=== PATIENT | female | born 2000 | race Caucasian/White ===

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

== ENCOUNTER → 2021-05-12 13:20 | Outpatient (BNVA) | payer BC, MEDICAID, SELFPAY | PROVIDERS: PCP Pediatrics Adolescent Medicine; Visit Provider Obstetrics & Gynecology | DX: Z32.01 Encounter for pregnancy test, result positive (principal) | CPT/HCPCS: 84702 ==

== ENCOUNTER → 2021-05-14 09:20 | Outpatient (BNVA) | payer BC, MEDICAID, SELFPAY | PROVIDERS: PCP Pediatrics Adolescent Medicine; Visit Provider Obstetrics & Gynecology | DX: Z32.01 Encounter for pregnancy test, result positive (principal) | CPT/HCPCS: 84702 ==

== ENCOUNTER → 2021-06-13 09:51 | Outpatient (BNVA) | payer BC, MEDICAID, SELFPAY | PROVIDERS: PCP Pediatrics Adolescent Medicine; Visit Provider Obstetrics & Gynecology | DX: Z34.90 Encounter for supervision of normal pregnancy, unspecified, unspecified trimester (principal) | CPT/HCPCS: 80307; 81000; 84443; 85025; 86592; 86762; 86803; 86850; 86900; 87086; 87340; 87806 ==

== ENCOUNTER → 2021-06-23 09:54 | Outpatient (BNVA) | payer BC, MEDICAID, SELFPAY | PROVIDERS: Visit Provider Obstetrics & Gynecology | DX: Z34.90 Encounter for supervision of normal pregnancy, unspecified, unspecified trimester (principal) | CPT/HCPCS: 81000; 87491; 87591; 87661 ==

== ENCOUNTER → 2021-07-24 14:35 | Outpatient (BNVA) | payer BC, MEDICAID, SELFPAY | PROVIDERS: Visit Provider Obstetrics & Gynecology | DX: Z34.80 Encounter for supervision of other normal pregnancy, unspecified trimester (principal) | CPT/HCPCS: 81000 ==

== ENCOUNTER → 2021-08-22 12:59 | Outpatient (BNVA) | payer MEDICAID, SELFPAY | PROVIDERS: Visit Provider Obstetrics & Gynecology | DX: Z34.80 Encounter for supervision of other normal pregnancy, unspecified trimester (principal) | CPT/HCPCS: 81000 ==

== ENCOUNTER → 2021-09-18 13:00 | Outpatient (BNVA) | payer BC, SELFPAY | PROVIDERS: Visit Provider Obstetrics & Gynecology | DX: Z34.90 Encounter for supervision of normal pregnancy, unspecified, unspecified trimester (principal) | CPT/HCPCS: 81000 ==

== ENCOUNTER → 2021-10-17 10:48 | Outpatient (BNVA) | payer BC, SELFPAY | PROVIDERS: Visit Provider Obstetrics & Gynecology | DX: Z34.90 Encounter for supervision of normal pregnancy, unspecified, unspecified trimester (principal) | CPT/HCPCS: 81000; 82950; 85025 ==

== ENCOUNTER → 2021-10-30 14:33 | Outpatient (BNVA) | payer MEDICAID, SELFPAY | PROVIDERS: PCP Family Medicine; Visit Provider Obstetrics & Gynecology | DX: Z34.80 Encounter for supervision of other normal pregnancy, unspecified trimester (principal) | CPT/HCPCS: 81000 ==

== ENCOUNTER → 2021-11-13 10:16 | Outpatient (BNVA) | payer BC, MEDICAID, SELFPAY | PROVIDERS: PCP Family Medicine; Visit Provider Obstetrics & Gynecology | DX: Z34.80 Encounter for supervision of other normal pregnancy, unspecified trimester (principal) | CPT/HCPCS: 81000 ==

== ENCOUNTER → 2021-11-27 11:26 | Outpatient (BNVA) | payer BC, MEDICAID, SELFPAY | PROVIDERS: PCP Family Medicine; Visit Provider Obstetrics & Gynecology | DX: Z34.90 Encounter for supervision of normal pregnancy, unspecified, unspecified trimester (principal) | CPT/HCPCS: 81000; 85025 ==

== ENCOUNTER → 2021-12-03 11:25 | Outpatient (BNVA) | payer BC, MEDICAID, SELFPAY | PROVIDERS: PCP Family Medicine; Visit Provider Obstetrics & Gynecology | DX: Z34.90 Encounter for supervision of normal pregnancy, unspecified, unspecified trimester (principal) | CPT/HCPCS: 76816 ==

== ENCOUNTER → 2021-12-11 09:32 | Outpatient (BNVA) | payer BC, MEDICAID, SELFPAY | PROVIDERS: PCP Family Medicine; Visit Provider Obstetrics & Gynecology | DX: Z34.90 Encounter for supervision of normal pregnancy, unspecified, unspecified trimester (principal) | CPT/HCPCS: 81000; 87081 ==

== ENCOUNTER → 2021-12-18 11:23 | Outpatient (BNVA) | payer BC, MEDICAID, SELFPAY | PROVIDERS: PCP Family Medicine; Visit Provider Obstetrics & Gynecology | DX: Z34.90 Encounter for supervision of normal pregnancy, unspecified, unspecified trimester (principal) | CPT/HCPCS: 81000 ==

== ENCOUNTER → 2021-12-25 13:20 | Outpatient (BNVA) | payer BC, MEDICAID, SELFPAY | PROVIDERS: PCP Family Medicine; Visit Provider Obstetrics & Gynecology | DX: Z34.90 Encounter for supervision of normal pregnancy, unspecified, unspecified trimester (principal) | CPT/HCPCS: 81000 ==

== ENCOUNTER → 2022-01-01 11:34 | Outpatient (BNVA) | payer BC, MEDICAID, SELFPAY | PROVIDERS: PCP Family Medicine; Visit Provider Obstetrics & Gynecology | DX: Z34.90 Encounter for supervision of normal pregnancy, unspecified, unspecified trimester (principal) | CPT/HCPCS: 81000 ==

== ENCOUNTER → 2022-01-08 10:33 | Outpatient (BNVA) | payer BC, MEDICAID, SELFPAY | PROVIDERS: PCP Family Medicine; Visit Provider Obstetrics & Gynecology | DX: Z34.90 Encounter for supervision of normal pregnancy, unspecified, unspecified trimester (principal) | CPT/HCPCS: 81000 ==

== ENCOUNTER 2022-01-12 10:38 | Inpatient (IN) | payer BC, MEDICAID, SELFPAY ==
[2022-01-12] VITALS (19 sets, daily range): BP systolic 105–143; BP diastolic 53–83; PULSE 52–131; RESP 15–17; TEMP 35.9–36.6; BMI 30.6
[2022-01-12] MEDS: miSOPROStol 100 mcg tablet 50 MCG PO (13:20)
--- NOTE | 2022-01-12 13:33 | P.HPUD_ITS ---
Labor & Delivery H&P Update Date of Procedure: January 12, 2022 Date H&P Performed: 01/08/22 Changes to previous documentation: Sherrie is a 21-year-old 0001 with an IUP 40W5D dated by LMP and 7-week ultrasound. History of 1 term and her daughter weighed 8 lbs 3oz.. This gestation has been complicated by anxiety disorder and nausea and vomiting up until today when she was diagnosed with oligohydramnios (PATTIE 3.93 cm). Ultrasound today revealed cephalic presentation. Dr. Goodrich sent Sherrie over for indicated induction of labor. Patient is accompanied by her , Scott. The couple has 1 daughter at home, Marilu, who will be 2 years old tomorrow. The couple is expecting another daughter, Víctor Hazel. ROS: Denies loss of fluid, denies vaginal bleeding, denies headache, denies spots in vision, denies right upper quadrant pain, denies cough, denies sore throat, denies difficulty breathing, and appreciates movement. PROCEDURE: 01/12/2022 at 1:00 PM * Ultrasound revealed cephalic?position today * Place patient in the dorsolithotomy position * Inserted sterile speculum * Visualized the external os of the cervix which appeared closed * Grasped the Cook's balloon with ring forceps and then inserted into the external os * Past the Cook's into the uterus to the level of the vaginal balloon * Filled the?uterine balloon with 80 mL?of normal saline then removed the speculum * Filled the?vaginal balloon with 80 mL?of normal saline and then taped the catheter to the patient's thigh * Administered 50 mcg of misoprostol orally with intent to provide an additional 2 doses every 3-4 hours * Patient tolerated the procedure well albeit mild cramping ensued * EBL: None * Complications: None NST/LOT ASSOCIATE: Baseline: 135 Variability:?Moderate Accelerations:?Present Decelerations:?Absent [place]:?Irregular with significant irritability Category: I Reactive/Passed Admission Diagnosis: Admission Diagnosis: * Term @ 40W5D * Oligohydramnios Preop diagnosis: labor Primary indication for procedure: Oligohydramnios with an PATTIE of 3.93 cm Planned procedure: Cervical ripening followed by induction of labor Related Problem List Diagnoses (1) Oligohydramnios: * Status post efforts for cervical ripening. Cook's catheter in place without complications and now is status post 50 mcg of oral misoprostol to be repeated every 3-4 hours. * Is currently excepting of IV pain control but would like to avoid epidural. Last labor she did have an epidural without complications. * Anticipate ParaGard IUD for contraception in the future * Anticipate exclusively breast-feeding. (2) Anxiety: (3) Postmaturity , 40-42 weeks gestation:
--- NOTE | 2022-01-12 13:33 | PM.OPHPUD ---
Labor & Delivery H&P Update Date of Procedure: January 12, 2022 Date H&P Performed: 01/08/22 Changes to previous documentation: Sherrie is a 21-year-old 0001 with an IUP 40W5D dated by LMP and 7-week ultrasound. History of 1 term and her daughter weighed 8 lbs 3oz.. This gestation has been complicated by anxiety disorder and nausea and vomiting up until today when she was diagnosed with oligohydramnios (PATTIE 3.93 cm). Ultrasound today revealed cephalic presentation. Dr. Goodrich sent Sherrie over for indicated induction of labor. Patient is accompanied by her , Scott. The couple has 1 daughter at home, Marilu, who will be 2 years old tomorrow. The couple is expecting another daughter, Víctor Hazel. ROS: Denies loss of fluid, denies vaginal bleeding, denies headache, denies spots in vision, denies right upper quadrant pain, denies cough, denies sore throat, denies difficulty breathing, and appreciates movement. PROCEDURE: 01/12/2022 at 1:00 PM Ultrasound revealed cephalic?position today Place patient in the dorsolithotomy position Inserted sterile speculum Visualized the external os of the cervix which appeared closed Grasped the Cook's balloon with ring forceps and then inserted into the external os Past the Cook's into the uterus to the level of the vaginal balloon Filled the?uterine balloon with 80 mL?of normal saline then removed the speculum Filled the?vaginal balloon with 80 mL?of normal saline and then taped the catheter to the patient's thigh Administered 50 mcg of misoprostol orally with intent to provide an additional 2 doses every 3-4 hours Patient tolerated the procedure well albeit mild cramping ensued EBL: None Complications: None NST/TILE MECHANIC: Baseline: 135 Variability:?Moderate Accelerations:?Present Decelerations:?Absent [place]:?Irregular with significant irritability Category: I Reactive/Passed Admission Diagnosis: Admission Diagnosis: Term @ 40W5D Oligohydramnios Preop diagnosis: labor Primary indication for procedure: Oligohydramnios with an PATTIE of 3.93 cm Planned procedure: Cervical ripening followed by induction of labor Related Problem List Diagnoses (1) Oligohydramnios: Status post efforts for cervical ripening. Cook's catheter in place without complications and now is status post 50 mcg of oral misoprostol to be repeated every 3-4 hours. Is currently excepting of IV pain control but would like to avoid epidural. Last labor she did have an epidural without complications. Anticipate ParaGard IUD for contraception in the future Anticipate exclusively breast-feeding. (2) Anxiety: (3) Postmaturity , 40-42 weeks gestation:
[2022-01-12 14:10] LABS: Basophils % 0.1 %; Eosinophils # 0.1 10^3/uL (0.0-0.8); Eosinophils % 0.5 %; Hematocrit 39.2 % (37.0-47.0); Hemoglobin 12.1 g/dL (11.5-15.3); Lymphocytes # 2.2 10^3/uL (1.5-6.5); Mean Corpuscular HGB Conc 30.9 g/dL (30.0-36.0); Mean Corpuscular Hemoglobin 24.3 pg (28.0-34.0); Mean Corpuscular Volume 78.7 fl (81-99); Mean Platelet Volume 13.2 fL (7.4-10.4); Monocytes # 0.7 10^3/uL (0.2-0.9); Monocytes % 7.1 %; Neutrophils % 70.9 %; Nucleated Red Blood Cells % 0 %; Platelet Count 182 10^3/cmm (130-400); Red Blood Count 4.98 10^6/uL (4.1-5.3); Red Cell Distribution Width 14.6 % (12.1-15.1); White Blood Count 10.3 10^3/uL (4.5-13.0)
[2022-01-12] MEDS: oxytocin 30 UNIT/500 ML BAG IV (16:01)
[2022-01-12] MEDS: dextrose 5%-lactated ringers 1,000 ML 125 ML IV (20:06)
[2022-01-13] VITALS (68 sets, daily range): BP systolic 91–149; BP diastolic 49–97; PULSE 51–96; RESP 14–18; TEMP 36.4–37; O2SAT 87–100
[2022-01-13] MEDS: dextrose 5%-lactated ringers 1,000 ML 125 ML IV ×2 (04:57→12:57)
[2022-01-13] MEDS: fentaNYL 50 mcg/mL INJ 2mL 100 MCG IVP ×3 (06:32→10:12)
--- NOTE | 2022-01-13 10:40 | P.PN_ITS ---
QUALITY IMPROVEMENT COORDINATOR Subjective Subjective: Interval history: Sherrie is a 21-year-old 0001 with an IUP 40W6D dated by LMP and 7-week ultrasound.? History of 1 term and her daughter weighed 8 lbs 3oz. EFW for this infant ~ 7 lbs.? This gestation has been complicated by anxiety disorder and nausea and vomiting up until 01/12/2022 when she was diagnosed with oligohydramnios (PATTIE 3.93 cm).? Ultrasound on 01/12/2022 revealed cephalic presentation.? Dr. Goodrich sent Sherrie over for indicated induction of labor. Patient is accompanied by her?, Scott.? The couple has 1 daughter at home, Marilu, who will be 2 years old tomorrow.? The couple is expecting another daughter,?Víctor Hazel. Since admit has had Cook's catheter/ballloons and oral Misoprostol for cervical ripening. The balloons fell out in less than 12 hours. At that point Pitocin was initiated and is currently running at 19 milliunits/min. During SVE ruptured forebag without incident. She has excepted IV fentanyl for pain management thus far and continues to decline epidural. ROS:?Endorses loss of fluid since ~ 0150 on 01/13/2022, denies vaginal bleeding, denies headache, denies spots in vision, denies right upper quadrant pain, denies cough, denies sore throat, denies difficulty breathing, and appreciates movement. Endorses significant pain with uterine contractions. Labor: Pain Control: narcotic analgesia Dilation (cm): 5 (5-6 cm) Effacement (%): 80 Station: 0 (Posterior) Amniotic Membrane Status: Leaking Monitor Mode: External Contraction Frequency: 3 (1 - 3 min) Contraction Pattern: Regular Contraction Intensity: Strong/Firm Status: Category I Vitals/I&O/Wt Last Vital Signs Temp 98.3 F 01/13/22 07:00 Pulse 55 L 01/13/22 10:42 Resp 18 01/13/22 10:12 BP 140/88 01/13/22 10:42 01/12/22 01/13/22 01/13/22 22:59 06:59 14:59 Intake Total 38.050 / 38.050 1113.6 / 1151.650 Balance 38.050 / 38.050 1113.6 / 1151.650 Weight last 48 hrs Weight 184 lb Physical Exam Const: GENERAL APPEARANCE: cooperative, well kempt, well developed and in distress (intermittent moderate distress during uterine contractions) Resp: COMMON NORMALS: normal respiratory effort and No use of accessory muscles Cardio: COMMON NORMALS: regular rate and regular rhythm RATE: regular rate RHYTHM: regular rhythm : SPECULUM EXAM - VAGINA: No vaginal bleeding SPECULUM EXAM - CERVIX: Yes Cervical os open (per above) OB/EXTERNAL & SPECULUM: external exam normal and Cervical os open (per above); no bleeding and vaginal bleeding Psych: COMMON NORMALS: mental status grossly normal, Normal thought process present, cooperative, normal affect, speech normal and activity/motor behavior normal APPEARANCE: Yes well kempt SPEECH: Yes normal speech THOUGHT PROCESS: Normal thought process present Skin: COMMON NORMALS: no rashes or lesions noted and turgor normal GENERAL SKIN EXAM: no rashes or lesions noted and turgor normal Data : 01/12/22 12:09 A&P Assessment and plan (1) Postmaturity , 40-42 weeks gestation: Continue pitocin labor augmentation Status: Acute (2) Anxiety: Status: Acute (3) Alteration in comfort associated with uterine contractions: * Pain management upon request * Category I FHT tracing * Anticipate Status: Acute Attestations Medical Necessity Statement*: Oligohydramnios, IOL, delivery, care Coding Level of Care Code Acute Utilization Review Coordinator for Chg Fwd Diagnoses Postmaturity , 40-42 weeks gestation O48.0 Anxiety F41.9 Alteration in comfort associated with uterine contractions N85.8
[2022-01-13] MEDS: lactated ringers 1,000 ML 999 ML IV (11:28)
--- NOTE | 2022-01-13 11:28 | ANES.PREANE2 ---
Pre-Anesthetic Assessment Height/Weight: Height 1.65 m Weight 83.461 kg Temp Pulse Resp BP 98.3 F 55 L 18 140/88 01/13/22 07:00 01/13/22 10:42 01/13/22 10:12 01/13/22 10:42 Preop Diagnosis: labor epidural Familial anesthetic complications: None Was Beta Tim taken within 24 hours: N/A Was Clonidine taken within 24 hours: N/A Social No alcohol and No tobacco Exam alert, oriented x 3, clear to auscultation bilaterally and regular rate & rhythm Airway Submandibular: within normal limits Cervical ROM: within normal limits Mallampati: Class III Dentition: full History/ROS No significant history except as noted and No significant complaints Pulmonary None reported CV/HEM None reported None reported Hepatic None reported GI None reported Metabolic None reported Musc/skel None reported Neuropsych None reported Anesthetic Plan ASA status: 2 Anesthesia: Regional (specify below) Other: epidural Risk of > 500 ml blood loss (7ml/kg in children): No Medications/Allergies Home Medications Medication Instructions Recorded Confirmed Last Taken Type PNV 153-FA 400 mcg-om3 35 mg-dha tab PO 05/22/21 01/08/22 01/12/22 07:50 History 25 mg-epa 5 mg-fish oil chew tablet ( Gummies) Allergies Allergy/AdvReac Type Severity Reaction Status Date / Time No Known Allergies Allergy Verified 01/12/22 13:56 Current Medications Generic Name Dose Route Start Last Admin Trade Name Freq PRN Reason Stop Dose Admin Fentanyl 100 mcg 01/13/22 06:28 01/13/22 10:12 Fentanyl 50 Mcg/Ml Inj 2ml IVP 100 mcg Q1H PRN Administration SEVERE PAIN Dextrose/Lactated Ringer's 1,000 mls @ 125 mls/hr 01/12/22 12:45 01/13/22 04:57 Dextrose 5%-Lactated Ringers IV 125 mls/hr .Q8H KENYETTA Administration Oxytocin 30 unit in 500 mls @ 1 mls/hr 01/12/22 16:00 01/13/22 05:00 Pitocin IV 19 milliunit/min .Q24H KENYETTA 19 mls/hr Titration Protocol 1 MILLIUNIT/MIN PFSH Anesthesia Medical History Patient denies medical problems denies htn,dm,thyroid,lung,dvt/pe PCP: Dr. Javon souza Surgical History History of wisdom tooth extraction 02/2021 Family History Denies family history of Colon cancer Ovarian cancer Diabetes Hyperlipidemia Breast cancer Cancer Hypertension Uterine cancer Thyroid disease Stroke Social History Smoking and tobacco status: never smoked Female Reproductive History : 2 Data Anesthesia : 01/12/22 12:09 Short CBC 01/12/22 Range/Units 12:09 WBC 10.3 (4.5-13.0) 10^3/uL Hgb 12.1 (11.5-15.3) g/dL Hct 39.2 (37.0-47.0) % MCV 78.7 L (81-99) fl Plt Count 182 (130-400) 10^3/cmm Neut % (Auto) 70.9 % Neut # (Auto) 7.30 (1.8-8.0) 10^3/uL Cardiac Studies: No Data to Display
--- NOTE | 2022-01-13 11:55 | ANES.PROC ---
Anesthesia Procedures Procedure/Date: 01/13/22 epidural Epidural: Time Out Performed: Yes Consents Signed: Procedure Consent Consent: requested by attending/covering physician, from patient, risks and benefits reviewed and patient agrees to proceed Lumbar Level: L3-L4 Epidural position: sitting Epidural procedure: sterile prep of area, 1% lidocaine to numb the area, neg for paresthesia, test dose given (3mL/2mL), 1.5% xylocaine 1:200k epi, 0.2% Ropivacaine bolus ml, placed PCEA, no systemic response, sterile dressing applied, L.U.D. no apparent complications and 0.2% Ropiavacaine @ mls/hr (11 mL/hr)
--- NOTE | 2022-01-13 13:35 | P.PN_ITS ---
SANDAL PARTS ASSEMBLER Subjective Subjective: Interval history: Subjective:?? Interval history: Sherrie is a 21-yea r-old 0001 w ith an IUP 40W6D d ated by LMP and 7- week ultrasound.? History of 1 term and her daugh ter weighed 8 lbs 3oz. EFW for this ~ 7 lbs.? T his gestation has been complicated b y anxiety disorder and nausea and vo miting up until when she w as diagnosed with oligohydramnios (A FI 3.93 cm).? Ultr asound on 2 revealed cephali c presentation.? Kalin Goodrich sent A brock over for ind icated induction o f labor. Patient is accompanied by her?, Mary payne.? The couple figueroa s 1 daughter at [facility], Marilu, who will be 2 years old to toy.? The coupl e is expecting ano ther daughter,?Xad ra September. Since adm it has had Cook's catheter/ballloons and oral Misopros jaquan for cervical r ipening.? The ball oons fell out in l ess than 12 hours. ? At that point Pi tocin was initiate d and is currently running at 20 mil liunits/min. Elva bhatt SVE ruptured for ebag without incid ent. She has excep madisyn IV fentanyl fo r pain management followed by roger galvez without inciden t. Labor: Dilation (cm): 9 Effacement (%): 100 Station: 0 Amniotic Membrane Status: Leaking Monitor Mode: External Contraction Frequency: 3 (1 - 3 min) Contraction Pattern: Regular Contraction Intensity: Strong/ Firm Status: Category II (secondary to one recent late deceleration (130s, moderate variability, +accels) ) Vitals/I&O/Wt Last Vital Signs Temp 97.8 F 01/13/22 12:00 Pulse 65 01/13/22 13:36 Resp 18 01/13/22 10:12 BP 108/56 01/13/22 13:36 Pulse Ox 98 01/13/22 12:30 01/12/22 01/13/22 01/13/22 22:59 06:59 14:59 Intake Total 38.050 / 38.050 1113.6 / 6083.296 6309.683 / 1151.683 Balance 38.050 / 38.050 1113.6 / 3845.402 1384.683 / 1151.683 Weight last 48 hrs Weight 184 lb Physical Exam Narrative: ROS:?Endorses loss of fluid since ~ 0150 on 01/13/2022, denies vaginal bl eeding, denies hea dache, denies spot s in vision, denie s right upper quad rant pain, denies cough, denies sore throat, denies di fficulty breathing , and appreciates movement. En dorses good pain a nd pressure contro l during uterine c ontractions since epidural.? Urinary Catheter Management: Jean: Cath Placed During This Visit: yes Urinary Catheter Date of Insertion: 01/13/22 Urinary Catheter Time of Insertion: 12:15 Data : 01/12/22 12:09 A&P Assessment and plan (1) Alteration in comfort associated with uterine contractions: Status: Acute (2) Postmaturity , 40-42 weeks gestation: Status: Acute (3) Oligohydramnios: * Brief Category II FHT tracing with resumption of Category I FHT tracing * Continue to titrate Epidural * Continue to titrate epidural * Anticipate as progress is adequate Status: Acute (4) Anxiety: Status: Acute Attestations Medical Necessity Statement*: Minutes labor, delivery, and immediate care Coding Level of Care Code Acute Group Sales Coordinator for Chg Fwd Diagnoses Alteration in comfort associated with uterine contractions N85.8 Postmaturity , 40-42 weeks gestation O48.0 Oligohydramnios O41.00X0 Anxiety F41.9
--- NOTE | 2022-01-13 15:39 | P.PCNOB_ITS ---
Delivery Note: Date of delivery: January 13, 2022 Pre-delivery diagnoses: IUP 40W6D Oligohydramnios Post-delivery diagnoses: Status post Normal Spontaneous Vaginal Delivery () without complications Procedure: Normal Spontaneous Vaginal Delivery () Op report anesthesia: Epidural Delivering Physician: Eva Hernandez MD, FACOG Estimated blood loss (mL): 150 Findings: Sherrie appears to have normal female anatomy with intact perineum and no vaginal lacerations Viable female infant, Víctor Hazel with normal female anatomy * Víctor Hazel anticipated to breast-feed exclusively [id number] * Weight: 3190 grams ( 7 lbs and 1 oz) * APGARS: 8 at one minute and 9 at five minutes Pre-Delivery Course: Sherrie is a 21-year-old 0001 with an IUP 40W6D Dated by LMP and 7-week ultrasound.?History of 1 term and her daughter weighed 8 lbs 3oz. EFW for this infant ~ 7 lbs.? This gestation has been complicated by anxiety disorder and nausea and vomiting up until 01/12/2022 when she was diagnosed with oligohydramnios (PATTIE 3.93 cm).? Ultrasound on 01/12/2022 r evealed cephalic presentation.? Dr. Goodrich sent Sherrie over for indicated induction of labor. Since admit has had Cook's catheter/ballloons and oral Misoprostol for cervical ripening.? The balloons fell out in less than 12 hours. At that point Pitocin was initiated. During SVE ruptured forebag without incident. She had IV fentanyl for pain management followed by epidural without incident. Patient is accompanied by her?, Keisha.? The couple has 1 daughter who is present, Marilu, who is 2 years old today.? Sherrie gave to yet another daughter today. She shares her day with her sister and her name is Víctor Hazel. Delivery: Upon Shrerie experiencing complete dilation, +3 station, and feeling of intense pressure she was placed in modified [place] position. She was instructed on pushing and she pushed very effectively, once and immediately brought the 's head to the perineum. The perineum appeared adequate. The patient pushed again and the head crowned in the OA position. The anterior shoulder was delivered with a downward motion, the posterior shoulder delivered with an upward motion, and the remainder of the infant's body delivered without any difficulty. Infant cried spontaneously and was placed on the mother's abdomen and resuscitated by the nurse. Delayed cord clamping was performed. Cord blood was obtained. Pitocin was administered and the placenta delivered spontaneously and was found to be intact and complete with a centrally inserted three-vessel cord. Xadra May anticipated to breast-feed exclusively [id number] 71 Weight: 3190 grams ( 7 lbs and 1 oz) APGARS: 8 at one minute and 9 at five minutes Post-Delivery Status: * There were NO lacerations * Doing well and coping well. Xadra is to the breast and family is all around. History History History 2 Term 1 0 Miscarriages/Ectopic 0 Living Children 1 A&P Assessment and plan (1) Care and examination immediately after delivery: Routine care. Status: Acute (2) Normal vaginal delivery of second : Status: Acute Coding Level of Care Code Acute Casing Crew Pusher for Chg Fwd Diagnoses Care and examination immediately after delivery Z39.0 Normal vaginal delivery of second O80
[2022-01-13] MEDS: ibuprofen 800 mg tablet PO (20:07)
[2022-01-13] MEDS: docusate sodium 100 mg Capsule PO (20:08)
[2022-01-14 01:00] VITALS: BP 127/63; PULSE 85; RESP 16; TEMP 36.8
[2022-01-14 04:45] VITALS: BP 125/68; PULSE 57; RESP 16; TEMP 36.8
[2022-01-14 05:20] LABS: Hematocrit 33.4 % (37.0-47.0); Hemoglobin 10.2 g/dL (11.5-15.3); Mean Corpuscular HGB Conc 30.5 g/dL (30.0-36.0); Mean Corpuscular Hemoglobin 23.9 pg (28.0-34.0); Mean Corpuscular Volume 78.4 fl (81-99); Mean Platelet Volume 12.2 fL (7.4-10.4); Platelet Count 161 10^3/cmm (130-400); Red Blood Count 4.26 10^6/uL (4.1-5.3); Red Cell Distribution Width 14.6 % (12.1-15.1); White Blood Count 12.3 10^3/uL (4.5-13.0)
--- NOTE | 2022-01-14 08:53 | PM.DCS ---
Discharge Providers Date of Admission: 01/12/22 10:38 Date of Discharge: January 14, 2022 Attending Provider at Admission: Eva Hernandez MD Attending Provider at Discharge: Eva Hernandez MD Primary Care Provider: Belle Constantino MD Diagnoses at Discharge Discharge Diagnosis (1) Care and examination immediately after delivery: Status: Acute (2) Normal vaginal delivery of second : Status: Acute Reason for Visit Reason for Visit: IOL Hospital Course Hospital Course The patient was admitted for induction of labor for oligohydramnios. She had spontaneous delivery of a term female . She did well and was ready for discharge on day #1 Physical Exam Narrative: doing well this morning. No concerns Const: COMMON NORMALS: no acute distress, average body habitus, patient oriented x3, no limitations, healthy appearing, alert and well nourished GENERAL APPEARANCE: cooperative, comfortable, well kempt and well developed ORIENTATION/CONSCIOUSNESS: Yes awake, Yes oriented to person, Yes oriented to place and Yes oriented to time Resp: COMMON NORMALS: normal respiratory effort EFFORT & INSPECTION: Yes able to speak in complete sentences GI: COMMON NORMALS: Soft to palpation and non-tender PALPATION: Yes Soft to palpation Extremity: COMMON NORMALS: no calf tenderness Neuro: COMMON NORMALS: patient oriented x3 SENSORIUM/ORIENTATION: Yes alert, Yes oriented to person, Yes oriented to place and Yes oriented to time Psych: APPEARANCE: Yes well kempt Urinary Catheter Management: Jean: Cath Placed During This Visit: yes Urinary Catheter Date of Insertion: 01/13/22 Urinary Catheter Time of Insertion: 12:15 Discharge Data Studies Completed and Pending Laboratory Results WBC 12.3 10^3/uL (4.5-13.0) 01/14/22 05:11 RBC 4.26 10^6/uL (4.1-5.3) 01/14/22 05:11 Hgb 10.2 g/dL (11.5-15.3) L 01/14/22 05:11 Hct 33.4 % (37.0-47.0) L 01/14/22 05:11 MCV 78.4 fl (81-99) L 01/14/22 05:11 MCH 23.9 pg (28.0-34.0) L 01/14/22 05:11 MCHC 30.5 g/dL (30.0-36.0) 01/14/22 05:11 RDW 14.6 % (12.1-15.1) 01/14/22 05:11 Plt Count 161 10^3/cmm (130-400) 01/14/22 05:11 MPV 12.2 fL (7.4-10.4) H 01/14/22 05:11 Neut % (Auto) 70.9 % 01/12/22 12:09 Lymph % (Auto) 21.0 % 01/12/22 12:09 [place] % (Auto) 7.1 % 01/12/22 12:09 Eos % (Auto) 0.5 % 01/12/22 12:09 Baso % (Auto) 0.1 % 01/12/22 12:09 Neut # (Auto) 7.30 10^3/uL (1.8-8.0) 01/12/22 12:09 Lymph # (Auto) 2.2 10^3/uL (1.5-6.5) 01/12/22 12:09 [place] # (Auto) 0.7 10^3/uL (0.2-0.9) 01/12/22 12:09 Eos # (Auto) 0.1 10^3/uL (0.0-0.8) 01/12/22 12:09 Baso # (Auto) 0.0 10^3/uL (0.0-0.1) 01/12/22 12:09 Nucleated RBC % (auto) 0 % 01/12/22 12:09 Nucleated RBCs # 0.0 /100WBC 01/12/22 12:09 Vitals Last Vital Signs Temp 98.3 F 01/14/22 04:45 Pulse 57 L 01/14/22 04:45 Resp 16 01/14/22 04:45 BP 125/68 01/14/22 04:45 Pulse Ox 99 01/13/22 20:19 O2 Del Method 01/13/22 20:19 Discharge Plan Discharge Patient Disposition: Home Condition: Stable Prescriptions: Continued Gummies 400 mcg-35 mg- 25 mg-5 mg tablet,chewable PO Discharge Orders: Discharge Order (Routine); Ordered 01/14/22 Ordered By: Nanda Goodrich Patient Instructions: Depression (DC), Bleeding (DC), Preeclampsia and Eclampsia After Delivery (GEN), Hemorrhage (DC), OB Discharge Report, OB Food/Drug Interaction Guide, OB Care at Home, Opioid Safety, OB Home Care, OB Vaginal Deliveries - [facility] Discharge Attestations Time Spent in Discharge Care*: less than 30 min Quality Metrics Clinical Quality Measures [ No reported AMI, CVA or VTE this stay] Coding Level of Care Code Acute Chg FW DC note Diagnoses Care and examination immediately after delivery Z39.0 Normal vaginal delivery of second O80
[2022-01-14] MEDS: prenatal vitamin Capsule 1 CAP PO (10:10)
[2022-01-14] MEDS: ibuprofen 800 mg tablet PO ×2 (10:10→15:44)
[2022-01-14] MEDS: docusate sodium 100 mg Capsule PO (10:10)
[2022-01-14 10:13] VITALS: BP 135/73; PULSE 60; RESP 16; TEMP 36.4
[2022-01-14 16:00] VITALS: BP 133/79; PULSE 79; RESP 16; TEMP 36.7; O2SAT 99
--- NOTE | 2022-01-15 16:47 | ANE.PACU2 ---
Inpatient post-anesthesia follow up: Airway intact: Yes Vital signs: Temperature 98.0 F Pulse Rate 79 Respiratory Rate 16 Blood Pressure 133/79 Pulse Oximetry 99 Oxygen Delivery Me thod Room Air Oxygen Flow Rate Fraction of Inspir ed Oxygen Hydration adequate: Yes Nausea and vomiting: No Pain level: 3 Mental status: Baseline Additional Comments: EMR review
== END 2022-01-14 16:00 | disposition home or self-care (01) | DRG 807 ==
LOC: OPOB 10:45 → OBGYN 10:47 → OPOB 10:49 → OBGYN 10:49
PROVIDERS: Admitting Provider Obstetrics & Gynecology; PCP Family Medicine; Visit Provider Obstetrics & Gynecology
DX: O41.03X0 Oligohydramnios, third trimester, not applicable or unspecified (principal); Z37.0 Single live birth; O48.0 Post-term pregnancy; Z3A.41 41 weeks gestation of pregnancy; O99.344 Other mental disorders complicating childbirth; F41.9 Anxiety disorder, unspecified
CPT/HCPCS: 12345; 36415; 51702; 59025; 59409; 85025; 85027; 99211; J2795; J3010

== ENCOUNTER → 2022-11-18 10:00 | Outpatient (BNVA) | payer BC, MEDICAID, SELFPAY | PROVIDERS: PCP Family Medicine; Visit Provider Obstetrics & Gynecology | DX: Z01.419 Encounter for gynecological examination (general) (routine) without abnormal findings (principal) | CPT/HCPCS: 87624 ==

== ENCOUNTER 2023-11-22 09:44 | Emergency (ER) | payer BC, MEDICAID, SELFPAY ==
[2023-11-22 09:52] VITALS: BP 117/77; PULSE 64; RESP 17; TEMP 36.9; O2SAT 98; BMI 24.4
--- NOTE | 2023-11-22 09:56 | ED_ITS ---
HPI - Female Genitourinary 2 General: Chief complaint: OB/Uterine Contractions Stated complaint: 7 weeks cramping n/v Time Seen by Provider: 11/22/23 09:47 Source: patient Mode of arrival: ambulatory Limitations: no limitations History of Present Illness: Patient is a 23-year-old female at approximately 7 weeks here for complaints of pelvic cramping starting yesterday evening. Patient had an IUD removed on 09/30 due to desired . She states following IUD removal she had vaginal bleeding that she is characterizing as her menstrual cycle and thus dating the 7 weeks based on this. She has her first OB appoinment with Dr. Del Cid next week. She is not having any vaginal bleeding or vaginal discharge. Denies urinary symptoms. MD elicited complaint: other (pelvic cramping) Onset (ago): hour(s) Severity: mild Quality of pain: cramping Consistency: intermittent Vaginal discharge: none Vaginal bleeding: none Exacerbating factors: none Relieving factors: none Associated symptoms: Deny abdominal pain, nausea or vaginal discharge Treatment prior to arrival: none Sexual activity: Yes Patient : Yes Possible : at home test positive Review of Systems 2 Const: Denies: fever(s) Card: Denies: chest pain Resp: Denies: dyspnea GI: Denies: abdominal pain, nausea, vomiting, diarrhea, hematochezia or melena : Reports: other (cramping); Denies: flank pain, difficulty voiding, dysuria, urinary frequency, urinary urgency, urinary hesitancy, hematuria, genital pruritis, vaginal odor, vaginal bleeding or vaginal discharge Musc: Denies: neck pain, back pain, extremity pain or joint pain Skin/Breast: Denies: rash PFSH ED 2 PFSH: Medical History Postmaturity , 40-42 weeks gestation Oligohydramnios Patient denies medical problems denies htn,dm,thyroid,lung,dvt/pe PCP: Dr. Javon souza Surgical History History of wisdom tooth extraction 02/2021 Family History Denies family history of Colon cancer Ovarian cancer Diabetes Hyperlipidemia Breast cancer Cancer Hypertension Uterine cancer Thyroid disease Stroke Physical Exam 2 Const: COMMON NORMALS: no acute distress, average body habitus, patient oriented x3, no limitations, healthy appearing, alert and well nourished G ENERAL APPEARANCE: cooperative Resp: COMMON NORMALS: normal respiratory effort and clear to auscultation bilaterally AUSCULTATION: clear to auscultation bilaterally Cardio: COMMON NORMALS: regular rate and regular rhythm RATE: regular rate RHYTHM: regular rhythm GI: COMMON NORMALS: Normal to inspection, nondistended, normoactive bowel sounds present, Soft to palpation, No hepatosplenomegaly present and no masses INSPECTION: Yes normal to inspection AUSCULTATION: Yes normoactive bowel sounds PALPATION: Yes Soft to palpation, Yes Tenderness to palpation present (GI) (mild left lower pelvic tenderness), No Guarding due to palpation present (GI), No Rigid due to palpation and Yes No hepatosplenomegaly present : COMMON NORMALS: Yes no CVA tenderness BLADDER/KIDNEY EXAM: Yes no CVA tenderness Back/Pelvis: COMMON NORMALS: no CVA tenderness Extremity: GENERAL: Yes normal exam except as noted Neuro: COMMON NORMALS: patient oriented x3 SENSORIUM/ORIENTATION: Yes alert Course 2 Vital Signs: Vital signs: Vital Signs Temperature 98.4 F 11/22/23 09:52 Pulse Rate 64 11/22/23 09:52 Respiratory Rate 17 11/22/23 09:52 Blood Pressure 117/77 11/22/23 09:52 Pulse Oximetry 98 11/22/23 09:52 Oxygen Delivery Me thod Room Air 11/22/23 09:52 MDM - Female Medical Decision Making Prelim ultrasound read showing a live intrauterine . Patient will be allowed discharge to follow-up with OB provider as scheduled next week. Lab Data 11/22/23 10:16 11/22/23 10:16 Laboratory Results WBC 7.23 10^3/uL (3.29-11.43) 11/22/23 10:16 RBC 4.38 10^6/uL (3.85-5.65) 11/22/23 10:16 Hgb 13.20 g/dL (11.27-16.99) 11/22/23 10:16 Hct 40.7 % (36-47) 11/22/23 10:16 MCV 92.9 fl (85-98) 11/22/23 10:16 MCH 30.1 pg (27-33) 11/22/23 10:16 MCHC 32.4 g/dL (30-55) 11/22/23 10:16 RDW 12.8 % (12.1-15.1) 11/22/23 10:16 Plt Count 223 10^3/cmm (157-399) 11/22/23 10:16 MPV 10.5 fL (7.4-10.4) H 11/22/23 10:16 Neut % (Auto) 61.7 % 11/22/23 10:16 Lymph % (Auto) 31.0 % 11/22/23 10:16 [place] % (Auto) 6.1 % 11/22/23 10:16 Eos % (Auto) 0.8 % 11/22/23 10:16 Baso % (Auto) 0.3 % 11/22/23 10:16 Neut # (Auto) 4.46 10^3/uL (1.8-7.7) 11/22/23 10:16 Lymph # (Auto) 2.2 10^3/uL (0.8-4.8) 11/22/23 10:16 [place] # (Auto) 0.4 10^3/uL (0.2-0.9) 11/22/23 10:16 Eos # (Auto) 0.1 10^3/uL (0.0-0.8) 11/22/23 10:16 Baso # (Auto) 0.0 10^3/uL (0.0-0.1) 11/22/23 10:16 Nucleated RBC % (auto) 0 % 11/22/23 10:16 Nucleated RBCs # 0.0 /100WBC 11/22/23 10:16 Sodium 132 mmol/L (136-145) L 11/22/23 10:16 Potassium 3.8 mmol/L (3.5-5.1) 11/22/23 10:16 Chloride 98 mmol/L (98-107) 11/22/23 10:16 Carbon Dioxide 24 mmol/L (22-29) 11/22/23 10:16 Anion Gap 13.8 (5-19) 11/22/23 10:16 BUN 14 mg/dL (6-20) 11/22/23 10:16 Creatinine 0.8 mg/dL (0.5-0.9) 11/22/23 10:16 GFR Calculation 89.7 mL/min (90-130) L 11/22/23 10:16 Glucose 81 mg/dL (65-115) 11/22/23 10:16 Calculated Osmolality 274 mOsm/kg (285-295) L 11/22/23 10:16 Calcium 9.1 mg/dL (8.5-10.5) 11/22/23 10:16 Total Bilirubin 0.3 mg/dL (0.15-1.2) 11/22/23 10:16 AST 17 U/L (0-32) 11/22/23 10:16 ALT 19 U/L (0-33) 11/22/23 10:16 Alkaline Phosphatase 44 U/L (35-105) 11/22/23 10:16 Total Protein 7.0 g/dL (6.6-8.7) 11/22/23 10:16 Albumin 4.4 g/dL (3.5-5.2) 11/22/23 10:16 Globulin 2.6 g/dL (1.3-4.6) 11/22/23 10:16 Ser , Semi-Qnt 03233.00 mIU/mL 11/22/23 10:16 Urine Color Yellow (Yellow) 11/22/23 10:05 Urine Appearance Clear (CLEAR) 11/22/23 10:05 Urine pH 7 (5-7) 11/22/23 10:05 Ur Specific [place] 1.000 (1.005-1.030) L 11/22/23 10:05 Urine Protein Neg (Negative) 11/22/23 10:05 Urine Glucose (UA) Norm (Normal) 11/22/23 10:05 Urine Ketones Negative (Negative) 11/22/23 10:05 Urine Blood Neg (Negative) 11/22/23 10:05 Urine Nitrate Negative (Negative) 11/22/23 10:05 Urine Bilirubin Neg (Negative) 11/22/23 10:05 Urine Urobilinogen Norm mg/dL (Negative) 11/22/23 10:05 Ur Leukocyte Esterase Negative (Negative) 11/22/23 10:05 Blood Type O Positive 11/22/23 10:16 Rho(D) Type Rh positive 11/22/23 10:16 XR interpretation done by ED provider, pending radiology final review Discharge Plan Discharge Condition: Stable Prescriptions: No Action ParaGard T 380A 380 square mm intrauterine device intrauterine Referrals: Belle Constantino MD [Primary Care Provider] - Coding Level of Care Code ED Senior Physical Therapist for Chg Clarke
[2023-11-22 10:18] LABS: Add Urine Microscopic? NO; Charge for UA Resulting for Rev
[2023-11-22 10:27] LABS: Basophils % 0.3 %; Eosinophils # 0.1 10^3/uL (0.0-0.8); Eosinophils % 0.8 %; Hematocrit 40.7 % (36-47); Lymphocytes # 2.2 10^3/uL (0.8-4.8); Mean Corpuscular HGB Conc 32.4 g/dL (30-55); Mean Corpuscular Hemoglobin 30.1 pg (27-33); Mean Corpuscular Volume 92.9 fl (85-98); Mean Platelet Volume 10.5 fL (7.4-10.4); Monocytes # 0.4 10^3/uL (0.2-0.9); Monocytes % 6.1 %; Neutrophils # 4.46 10^3/uL (1.8-7.7); Neutrophils % 61.7 %; Nucleated Red Blood Cells % 0 %; Platelet Count 223 10^3/cmm (157-399); Red Blood Count 4.38 10^6/uL (3.85-5.65); Red Cell Distribution Width 12.8 % (12.1-15.1); White Blood Count 7.23 10^3/uL (3.29-11.43)
[2023-11-22 10:31] LABS: Bilirubin Urine Neg (Negative); Blood Urine Neg (Negative); Glucose Urine UA Norm (Normal); Ketones Urine Negative (Negative); Leukocyte Esterase Urine Negative (Negative); Nitrate Urine Negative (Negative); Protein Urine Neg (Negative); Urine Appearance Clear (CLEAR); Urine Color Yellow (Yellow); Urobilinogen Urine Norm (Negative); pH Urine 7 (5-7)
[2023-11-22 10:58] LABS: Alanine Aminotransferase 19 U/L (0-33); Albumin Level 4.4 g/dL (3.5-5.2); Alkaline Phosphatase 44 U/L (35-105); Anion Gap 13.8 (5-19); Aspartate Amino Transferase 17 U/L (0-32); Blood Urea Nitrogen 14 mg/dL (6-20); Calcium 9.1 mg/dL (8.5-10.5); Carbon Dioxide 24 mmol/L (22-29); Chloride 98 mmol/L (98-107); Creatinine Clr Calc Pharmacy 105.9962; Globulin 2.6 g/dL (1.3-4.6); Glomerular Filtration Rate 89.7 mL/min (90-130); Glucose 81 mg/dL (65-115); Osmolality Calculated 274 mOsm/kg (285-295); Potassium 3.8 mmol/L (3.5-5.1); Sodium 132 mmol/L (136-145); Total Bilirubin 0.3 mg/dL (0.15-1.2)
--- NOTE | 2023-11-22 11:05 | US_ITS ---
WS: [id number] OB ultrasound, 11/22/2023 Clinical Data: cramping Comparison: None. Findings: There is a single interuterine . The uterus measures 6.0 x 8.4 cm heart rate is 116 be ats per minute. There is a 0.36 cm yolk sac present. The crown-rump length measured 0.4 cm and the gestational sac 2. 09 cm. The estimated gestational age 6w4d is with an PATTI of approximately 07/13/2024. The left ovary measured 3.7 cm x 2.9 cm x 2.5 cm. The right ovary measured 3.8 cm x 3.3 cm x 1.7 cm. No ovarian cyst or masses are seen. US/US OB <=14 wk fetus w transvag Impression: 1. Single interuterine . 2. Estimated gestational age of 6w4d with an PATTI of 07/13/2024. 3. heart rate 116 beats per minute.
== END 2023-11-22 12:13 | disposition home or self-care (01) ==
PROVIDERS: Emergency Provider Physician Assistant; PCP Family Medicine
DX: O26.891 Other specified pregnancy related conditions, first trimester (principal); R10.2 Pelvic and perineal pain; Z3A.01 Less than 8 weeks gestation of pregnancy
CPT/HCPCS: 36415; 76801; 76817; 80053; 81003; 84702; 85025; 86900; 99284

== ENCOUNTER → 2023-12-07 10:56 | Outpatient (BNVA) | payer BC, MEDICAID, SELFPAY | PROVIDERS: PCP Family Medicine; Visit Provider Obstetrics & Gynecology | DX: Z36.87 Encounter for antenatal screening for uncertain dates (principal) | CPT/HCPCS: 76801 ==

== ENCOUNTER → 2023-12-13 08:02 | Outpatient (BNVA) | payer BC, MEDICAID, SELFPAY | PROVIDERS: PCP Family Medicine; Visit Provider Nurse Practitioner Women's Health | DX: Z34.90 Encounter for supervision of normal pregnancy, unspecified, unspecified trimester (principal) | CPT/HCPCS: 80307; 84315; 84439; 84443; 84481; 85025; 86592; 86762; 86803; 86850; 86900; 87086; 87340; 87491; 87591; 87806 ==

== ENCOUNTER 2023-12-27 21:01 | Emergency (ER) | payer SELFPAY ==
[2023-12-27 21:03] VITALS: BP 109/72; PULSE 84; RESP 16; TEMP 37.1; O2SAT 95; BMI 24.6
--- NOTE | 2023-12-27 21:28 | W.ED.PREGNAN ---
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 She denies any pain denies any bleeding. She had 2 previous pregnancies with no problems. Associated symptoms: Deny abdominal pain, headache(s), nausea or vomiting Related Data Home Medications Medication Instructions Recorded Confirmed PNV 153-FA 400 mcg-om3 35 mg-dha tab PO 11/30/23 12/22/23 25 mg-epa 5 mg-fish oil chew tablet ( Gummies) Allergies Allergy/AdvReac Type Severity Reaction Status Date / Time No Known Allergies Allergy Verified 12/22/23 08:44 Review of Systems Const: Denies: fever(s), chills, body aches or change in appetite ENMT: Denies: throat pain or dental pain Card: Denies: chest pain Resp: Denies: dyspnea GI: Denies: abdominal pain, nausea, vomiting or diarrhea Musc: Denies: neck pain or back pain Skin/Breast: Denies: rash Neuro: Denies: headache(s) PFSH ED PFSH: Medical History Patient denies medical problems denies htn,dm,thyroid,lung,dvt/pe PCP:Dr. Bruno Surgical History History of wisdom tooth extraction 02/2021 Family History Denies family history of Colon cancer Ovarian cancer Diabetes Hyperlipidemia Breast cancer Cancer Hypertension Uterine cancer Thyroid disease Stroke Social History Smoking and tobacco/nicotine status: never used tobacco/nicotine Physical Exam Const: COMMON NORMALS: no acute distress, patient oriented x3 and healthy appearing HENMT: COMMON NORMALS: normocephalic and atraumatic HEAD & SCALP: normocephalic and atraumatic Neck/C-Spine: COMMON NORMALS: full ROM and supple Chest: COMMONS NORMALS: normal inspection of the chest Resp: COMMON NORMALS: normal respiratory effort Cardio: COMMON NORMALS: regular rate RATE: regular rate GI: COMMON NORMALS: Normal to inspection, nondistended, normoactive bowel sounds present, Soft to palpation, non-tender and no masses PALPATION: Yes Soft to palpation Extremity: COMMON NORMALS: normal to inspection and full ROM Neuro: COMMON NORMALS: patient oriented x3, moves all extremities and no focal motor deficits Psych: COMMON NORMALS: mental status grossly normal, Normal thought process present and cooperative THOUGHT PROCESS: Normal thought process present Skin: COMMON NORMALS: no rashes or lesions noted and no wounds GENERAL SKIN EXAM: no rashes or lesions noted Course Vital Signs: Vital signs: Vital Signs Temperature 98.7 F 12/27/23 21:03 Pulse Rate 84 12/27/23 21:03 Respiratory Rate 16 12/27/23 21:03 Blood Pressure 109/72 12/27/23 21:03 Pulse Oximetry 95 12/27/23 21:03 Oxygen Delivery Me thod Room Air 12/27/23 21:03 MDM - OB/Uterine Contractions Medical Decision Making Patient presents here concerned she could not Doppler her babies heartbeat at home I did a bedside ultrasound showed an IUP consistent with dates heart rates in the 150s Medical Records I reviewed the patient's medical records. No radiology studies performed this visit Discharge Plan Discharge Patient Disposition: Home Clinical Impression: Qualifiers: Weeks of gestation: 11 weeks Qualified Code(s): Z3A.11 - 11 weeks gestation of Condition: Stable Prescriptions: No Action Gummies 400 mcg-35 mg- 25 mg-5 mg tablet,chewable PO Discharge Orders: Discharge ED (Routine); Ordered 12/27/23 Ordered By: Yousuf Cortez Referrals: Evert Bruno MD [Primary Care Provider] - Discharge Diet: Advance as tolerated Discharge Activity: Resume usual activity Patient Instructions: (ED) Coding Level of Care Code ED Bilingual Customer Service Specialist for Niharika Mir
== END 2023-12-27 21:39 | disposition home or self-care (01) ==
PROVIDERS: Emergency Provider Emergency Medicine; PCP Family Medicine
DX: Z34.91 Encounter for supervision of normal pregnancy, unspecified, first trimester (principal); Z3A.11 11 weeks gestation of pregnancy
CPT/HCPCS: 99282

== ENCOUNTER → 2023-12-28 07:52 | Outpatient (BNVA) | payer SELFPAY | PROVIDERS: PCP Family Medicine; Visit Provider Obstetrics & Gynecology | DX: Z34.90 Encounter for supervision of normal pregnancy, unspecified, unspecified trimester (principal) | CPT/HCPCS: 81000 ==

== ENCOUNTER → 2024-02-29 13:27 | Outpatient (BNVA) | payer MEDICAID, SELFPAY | PROVIDERS: PCP Family Medicine; Visit Provider Obstetrics & Gynecology | DX: O36.80X0 Pregnancy with inconclusive fetal viability, not applicable or unspecified (principal); Q96.9 Turner's syndrome, unspecified; O36.22X0 Maternal care for hydrops fetalis, second trimester, not applicable or unspecified; Z3A.19 19 weeks gestation of pregnancy; D18.1 Lymphangioma, any site | CPT/HCPCS: 76815 ==

== ENCOUNTER 2024-03-06 10:41 | Outpatient (CLI) | payer MEDICAID, SELFPAY ==
[2024-03-06 10:53] VITALS: BMI 24.3
[2024-03-06 12:00] VITALS: RESP 16
== END 2024-03-06 12:10 | disposition home or self-care (01) ==
LOC: OPOB 10:45 → OBGYN 10:46
PROVIDERS: PCP Family Medicine; Visit Provider Obstetrics & Gynecology
DX: O36.8190 Decreased fetal movements, unspecified trimester, not applicable or unspecified (principal); Z3A.00 Weeks of gestation of pregnancy not specified
CPT/HCPCS: 99211

== ENCOUNTER 2024-03-06 16:44 | Inpatient (IN) | payer BC, MEDICAID, SELFPAY ==
[2024-03-06 16:47] VITALS: BMI 24.1
[2024-03-06 17:12] VITALS: BP 111/66; PULSE 81
[2024-03-06] MEDS: miSOPROStol 100 mcg tablet VAGINAL (17:59)
[2024-03-06 19:14] LABS: Basophils % 0.2 %; Eosinophils % 0.5 %; Hematocrit 38.1 % (36-47); Lymphocytes # 2.1 10^3/uL (0.8-4.8); Lymphocytes % 23.6 %; Mean Corpuscular HGB Conc 33.9 g/dL (30-55); Mean Corpuscular Hemoglobin 31.8 pg (27-33); Mean Corpuscular Volume 93.8 fl (85-98); Mean Platelet Volume 11.1 fL (7.4-10.4); Monocytes # 0.5 10^3/uL (0.2-0.9); Monocytes % 5.4 %; Neutrophils # 6.16 10^3/uL (1.8-7.7); Nucleated Red Blood Cells % 0 %; Platelet Count 199 10^3/cmm (157-399); Red Blood Count 4.06 10^6/uL (3.85-5.65); Red Cell Distribution Width 12.2 % (12.1-15.1); White Blood Count 8.81 10^3/uL (3.29-11.43)
--- NOTE | 2024-03-06 19:50 | PM.OBGYHP ---
Providers/Chief Complaint Admitting Physician: Memo Del Cid MD Primary ARMATURE WINDER HELPER REPAIR: Memo Del Cid MD Primary Care Provider: Evert Bruno MD Chief Complaint: IOL - Demise HPI ARMATURE WINDER HELPER REPAIR History of Present Illness Sherrie Ch is a 23 year old female 23 y.o. EDC July 10, 2024 At 22 w 0 d fetus with XO genotype and multiple anomalies, severe hydrops, not compatible with life patient was seen by Billy OTOOLE [place] patient presents with no movements fetus found to have no heart motion now admitted for induction of labor Present Details : 3 Para: 2 Labs Rubella: Immune RPR: Negative GBS: Unknown Medications/Allergies Home Medications Medication Instructions Recorded Confirmed Last Taken Type PNV 153-FA 400 mcg-om3 35 mg-dha tab PO 11/30/23 03/02/24 03/06/24 History 25 mg-epa 5 mg-fish oil chew tablet ( Gummies) Allergies Allergy/AdvReac Type Severity Reaction Status Date / Time No Known Allergies Allergy Verified 01/26/24 08:34 PFSH ARMATURE WINDER HELPER REPAIR PFSH: Medical History Patient denies medical problems denies htn,dm,thyroid,lung,dvt/pe PCP:Dr. Bruno Surgical History History of wisdom tooth extraction 02/2021 Family History Denies family history of Colon cancer Ovarian cancer Diabetes Hyperlipidemia Breast cancer Cancer Hypertension Uterine cancer Thyroid disease Stroke Social History Smoking and tobacco/nicotine status: never used tobacco/nicotine Other Female Reproductive History: Hx Age of Menarche: 12 History History History 3 Term 2 0 Miscarriages/Ectopic 0 Living Children 2 Care PATTI Calculator Estimated Delivery Date Method Current WG Current Estimate 07/10/24 LMP (Certain) 22w 1d Other Estimates 07/13/24 Ultrasound #1 21w 5d Specific Issues/Plans NAUSEA AND VOMITING IN --doing better ANXIETY -- doing well, not on medication for this ABNORMAL GENETIC TEST -- HIGH RISK FOR MONOSOMY X (NIPT) - seeing MFM CARRIER for MEDIUM CHAIN ACYL-COA DEHYDROGENASE DEFICIENCY --- seeing MFM Vitals/I&O/Wt Last Vital Signs Temp 97.8 F 03/06/24 21:19 Pulse 60 03/07/24 00:16 BP 111/57 03/07/24 00:16 O2 Del Method Room Air 03/06/24 16:47 Weight last 48 hrs Weight 145 lb Physical Exam Narrative: Weight 155 lbs, 5?5? VS normal General comfortable, awake, alert Lungs: clear Cor: RRR Abd: soft, nontender bedside sono done by me: no heart motion no movements fetus with massive ascites Cervix: closed / long / high Data 03/06/24 17:45 Results Labs OB ([facility]): Obstetrics US 02/29/24 Blood Type O Positive 03/06/24 Antibody Screen Negative 03/06/24 Hct 38.1 % (36-47) 03/06/24 Hgb 12.90 g/dL (11.27-16.99) 03/06/24 Rho(D) Type Rh positive 03/06/24 Plt Count 199 10^3/cmm (157-399) 03/06/24 Hep Bs Antigen Non-reactive (Nonreactive) 12/13/23 Hepatitis C Antibody Non-reactive (Nonreactive) 12/13/23 Rubella IgG Antibody 122.6 IU/mL (0.0-10.0) H 12/13/23 RPR Nonreactive (Nonreactive) 12/13/23 HIV 1&2 Ab & HIV 1 Ag Non-reactive (Non-Reactiv) 12/13/23 TSH 1.52 uIU/mL (0.27-4.20) 12/13/23 Free T4 1.08 ng/dL (0.82-1.77) 12/13/23 C.trachomatis RNA (TMA) Not detected (NOT DETECTED) 12/13/23 N.gonorrhoeae RNA (TMA) Not detected (NOT DETECTED) 12/13/23 T. vaginalis Amp RNA Not detected (NOT DETECTED) 12/13/23 Chlamydia/GC Comment See note 12/13/23 Cystic Fibrosis Screen See comments 12/13/23 Ser , Semi-Qnt 07731.00 mIU/mL 11/22/23 HCG, Qual Positive (Negative) H 11/30/23 Urine Opiates Screen Negative ng/mL (Negative) 12/13/23 Ur Barbiturates Screen Negative ng/mL (Negative) 12/13/23 Ur Phencyclidine Scrn Negative ng/mL (Negative) 12/13/23 Ur Amphetamines Screen Negative ng/mL (Negative) 12/13/23 U Benzodiazepines Scrn Negative ng/mL (Negative) 12/13/23 Urine Cocaine Screen Negative ng/mL (Negative) 12/13/23 U Marijuana (THC) Screen Negative ng/mL (Negative) 12/13/23 Micro Urine Specimen 12/13/23 Pap Smear Interpret See note 11/18/22 A&P Assessment and plan (1) Hydrops fetalis, antepartum: 22 w 0 d fetus with XO genotype and multiple anomalies, severe hydrops, not compatible with life demise recommend induction of labor this was discussed with patient, including use of Cytotec for induction of labor patient understands and wants to proceed plan Cytotec 100 ug intravaginal Attestations Medical Necessity Statement*: patient at 22 w with demise, admitted for induction of labor Coding Level of Care Code Acute Code for Chg Fwd Diagnoses Hydrops fetalis, antepartum O36.20X0 Time Spent (min) 60
[2024-03-06 21:15] VITALS: BP 122/83; PULSE 72
[2024-03-06 21:19] VITALS: TEMP 36.6
[2024-03-06] MEDS: ondansetron 2 mg/ML SDV 2 mL 4 MG IVP (21:53)
[2024-03-07] VITALS (12 sets, daily range): BP systolic 105–151; BP diastolic 54–81; PULSE 55–87; TEMP 36.1–36.7
--- NOTE | 2024-03-07 00:20 | P.PN_ITS ---
RN BABY Subjective 2 Subjective: Interval history: feeling mild cramps Cervix: long / closed / high plan second dose of Cytotec 100 ug intravaginal Labor: Amniotic Membrane Status: Intact Monitor Mode: External C ontraction Pattern: Occasional Vitals/I&O/Wt Last Vital Signs Temp 97.8 F 03/06/24 21:19 Pulse 60 03/07/24 00:16 BP 111/57 03/07/24 00:16 O2 Del Method Room Air 03/06/24 16:47 Weight last 48 hrs Weight 145 lb Data 03/06/24 17:45 A&P Assessment and plan (1) Hydrops fetalis, antepartum: Attestations 2 Medical Necessity Statement*: patient at 22 w with demise, admitted of induction of labor Coding Level of Care Code Acute Code for Chg Fwd Diagnoses Hydrops fetalis, antepartum O36.20X0 Time Spent (min) 20
[2024-03-07] MEDS: miSOPROStol 200 mcg Tablet 100 MCG VAGINAL (00:49)
[2024-03-07] MEDS: miSOPROStol 200 mcg Tablet 150 MCG VAGINAL (08:38)
[2024-03-07] MEDS: miSOPROStol 200 mcg Tablet VAGINAL (17:43)
[2024-03-08] VITALS (32 sets, daily range): BP systolic 98–137; BP diastolic 53–83; PULSE 56–98; RESP 15–18; TEMP 36.6–37.2; O2SAT 98–99
--- NOTE | 2024-03-08 00:45 | P.PN_ITS ---
PHARMACEUTICAL SCIENTIST Subjective 2 Subjective: Interval history: feeling infrequent mild cramps Cervix: 1 cm / 50% / high / posterior patient received Cytotec 100 ug x two Cytotec 150 ug x one Cytotec 200 ug x one plan Cytotec 400 ug intravaginal Labor: Station: +2 Amniotic Membrane Status: Ruptured Monitor Mode: External Contraction Pattern: Regular Vitals/I&O/Wt Last Vital Signs Temp 97.8 F 03/08/24 20:55 Pulse 98 03/08/24 20:55 Resp 17 03/08/24 20:55 BP 110/65 03/08/24 20:55 Pulse Ox 98 03/08/24 20:55 O2 Del Method Room Air 03/06/24 16:47 Data 03/08/24 20:20 A&P Assessment and plan (1) : Qualifiers: Weeks of gestation: 11 weeks Qualified Code(s): Z3A.11 - 11 weeks gestation of (2) Hydrops fetalis, antepartum: (3) demise: Attestations 2 Medical Necessity Statement*: patient at 22 weeks, fetus with multiple anomalies incompatible with life. Presented with demise, now undergoing induction of labor. Coding Level of Care Code Acute Code for Chg Fwd Diagnoses 11 weeks gestation of Z3A.11 Weeks of gestation: 11 weeks Hydrops fetalis, antepartum O36.20X0 demise Time Spent (min) 30
[2024-03-08] MEDS: miSOPROStol 100 mcg tablet 400 MCG VAGINAL (01:01)
[2024-03-08] MEDS: fentaNYL 50 mcg/mL INJ 2mL IVP ×3 (03:55→06:31)
[2024-03-08] MEDS: carboprost tromethamine 250 mcg/mL Amp IM (07:16)
--- NOTE | 2024-03-08 07:35 | PM.DELIVERY ---
Delivery Note: Date of delivery: March 08, 2024 Pre-delivery diagnoses: Sherrie Ch is a 23 year old female 23 y.o. EDC July 10, 2024 At 22 w 0 d fetus with XO genotype and multiple anomalies, severe hydrops, not compatible with life patient was seen by Billy OTOOLE [place] patient presents with no movements fetus found to have no heart motion admitted for induction of labor Post-delivery diagnoses: 22 weeks gestation multiple anomalies incompatible with life no heart motion stillbirth induction of labor vaginal delivery Procedure: induction of labor vaginal delivery Op report anesthesia: None Delivering Physician: Memo Del Cid MD Estimated blood loss (mL): 50 Findings: nonviable malformed fetus normal placenta and cord for gestational age no perineal / vaginal lacerations Pre-Delivery Course: normal labor course induction of labor by cytotec Delivery: vaginal Post-Delivery Status: good History History History 3 Term 2 0 Miscarriages/Ectopic 0 Living Children 2 A&P Assessment and plan (1) Hydrops fetalis, antepartum: (2) demise: (3) Vaginal delivery: Coding Level of Care Code Acute Code for Chg Fwd Diagnoses Hydrops fetalis, antepartum O36.20X0 demise Vaginal delivery O80 Time Spent (min) 60
--- NOTE | 2024-03-08 13:14 | PC.NURSE ---
1240 TOOK PATIENT OVER TO MED SURG TO TAKE A SHOWER. PATIENT DID WELL. BACK TO ROOM WITH NO ISSUES.
--- NOTE | 2024-03-08 18:10 | PM.OBGYPN ---
CYANIDE FURNACE OPERATOR Subjective Subjective: Interval history: no c/o no bleeding, pain eating, voiding, ambulating well patient wants to go home Labor: Station: +2 Amniotic Membrane Status: Ruptured Monitor Mode: External Contraction Pattern: Regular Vitals/I&O/Wt Last Vital Signs Temp 97.8 F 03/08/24 20:55 Pulse 98 03/08/24 20:55 Resp 17 03/08/24 20:55 BP 110/65 03/08/24 20:55 Pulse Ox 98 03/08/24 20:55 O2 Del Method Room Air 03/06/24 16:47 Physical Exam Narrative: afebrile, VS normal comfortable, awake, alert Abd: soft, nontender. fundus firm Ext: no edema; nontender Data 03/08/24 20:20 A&P Assessment and plan (1) Vaginal delivery: PPD #0 s/p induced vaginal delivery of 22-week demise doing well discharge to home today instructions and precautions given call/return if fever, chills, headache, blurry vision, nausea, vomiting, abdominal pain; vaginal bleeding or discharge; shortness of breath, chest pain, leg pains or swelling; inability to void, perineal pain or swelling; feelings of depression or mood changes; thoughts of suicide or harming others f/u in 6 weeks or PRN Attestations Medical Necessity Statement*: patient s/p vaginal delivery, plan discharge to home today Coding Level of Care Code Acute Code for Chg Fwd Diagnoses Vaginal delivery O80 Time Spent (min) 20
--- NOTE | 2024-03-08 19:05 | PM.OBGYDC ---
Discharge Providers LUGGAGE MAKER Date of Admission: 03/06/24 16:44 Date of Discharge: 03/08/24 Attending Provider at Admission: Memo Del Cid MD Attending Provider at Discharge: Memo Del Cid MD Consults: none Primary LUGGAGE MAKER: Memo Del Cid MD Primary Care Provider: Evert Bruno MD Diagnoses at Discharge Discharge Diagnosis (1) Vaginal delivery: Details from hospital stay: 23 y.o. 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, severe hydrops, not compatible with life patient was seen by Billy OTOOLE [place] patient presents with no movements fetus found to have no heart motion admitted for induction of labor patient underwent cytotec induction, delivered vaginally a non-viable malformed fetus placenta and cord delivered without any difficulties patient had no bleeding and complaints She wanted to be discharged on day #0 patient was discharged with instructions call/return if fever, chills, headache, blurry vision, nausea, vomiting, abdominal pain; vaginal bleeding or discharge; shortness of breath, chest pain, leg pains or swelling; inability to void, perineal pain or swelling; feelings of depression or mood changes; thoughts of suicide or harming others Status: Acute Reason for Visit Reason for Visit: IOL - Demise Brief History: 23 y.o. 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, severe hydrops, not compatible with life patient was seen by Billy OTOOLE [place] patient presents with no movements fetus found to have no heart motion admitted for induction of labor patient underwent cytotec induction, delivered vaginally a non-viable malformed fetus placenta and cord delivered without any difficulties patient had no bleeding and complaints She wanted to be discharged on day #0 patient was discharged with instructions call/return if fever, chills, headache, blurry vision, nausea, vomiting, abdominal pain; vaginal bleeding or discharge; shortness of breath, chest pain, leg pains or swelling; inability to void, perineal pain or swelling; feelings of depression or mood changes; thoughts of suicide or harming others Information Peripartum Data: Delivery Method: Vaginal Laceration description: None Episiotomy description: None complications: none Physical Exam Narrative: afebrile, VS normal comfortable, awake, alert Abd: soft, nontender. fundus firm Ext: no edema; nontender History History History 3 Term 2 0 Miscarriages/Ectopic 0 Living Children 2 Discharge Data Studies Completed and Pending Laboratory Results WBC 11.79 10^3/uL (3.29-11.43) H 03/08/24 20:20 RBC 4.16 10^6/uL (3.85-5.65) 03/08/24 20:20 Hgb 13.30 g/dL (11.27-16.99) 03/08/24 20:20 Hct 39.3 % (36-47) 03/08/24 20:20 MCV 94.5 fl (85-98) 03/08/24 20:20 MCH 32.0 pg (27-33) 03/08/24 20:20 MCHC 33.8 g/dL (30-55) 03/08/24 20:20 RDW 12.2 % (12.1-15.1) 03/08/24 20:20 Plt Count 203 10^3/cmm (157-399) 03/08/24 20:20 MPV 10.9 fL (7.4-10.4) H 03/08/24 20:20 Neut % (Auto) 70.0 % 03/06/24 17:45 Lymph % (Auto) 23.6 % 03/06/24 17:45 [place]ern % (Auto) 5.4 % 03/06/24 17:45 Eos % (Auto) 0.5 % 03/06/24 17:45 Baso % (Auto) 0.2 % 03/06/24 17:45 Neut # (Auto) 6.16 10^3/uL (1.8-7.7) 03/06/24 17:45 Lymph # (Auto) 2.1 10^3/uL (0.8-4.8) 03/06/24 17:45 Kern # (Auto) 0.5 10^3/uL (0.2-0.9) 03/06/24 17:45 Eos # (Auto) 0.0 10^3/uL (0.0-0.8) 03/06/24 17:45 Baso # (Auto) 0.0 10^3/uL (0.0-0.1) 03/06/24 17:45 Nucleated RBC % (auto) 0 % 03/06/24 17:45 Nucleated RBCs # 0.0 /100WBC 03/06/24 17:45 Blood Type O Positive 03/06/24 17:45 Rho(D) Type Rh positive 03/06/24 17:45 Antibody Screen Negative 03/06/24 17:45 Additional Data from Hospital Stay patient did not want placenta or fetus sent to pathology Procedures Performed induction of labor vaginal delivery Vitals Last Vital Signs Temp 97.8 F 03/08/24 20:55 Pulse 98 03/08/24 20:55 Resp 17 03/08/24 20:55 BP 110/65 03/08/24 20:55 Pulse Ox 98 03/08/24 20:55 O2 Del Method Room Air 03/06/24 16:47 Results Labs OB ([facility]): Obstetrics US 02/29/24 Blood Type O Positive 03/06/24 Antibody Screen Negative 03/06/24 Hct 39.3 % (36-47) 03/08/24 Hgb 13.30 g/dL (11.27-16.99) 03/08/24 Rho(D) Type Rh positive 03/06/24 Plt Count 203 10^3/cmm (157-399) 03/08/24 Hep Bs Antigen Non-reactive (Nonreactive) 12/13/23 Hepatitis C Antibody Non-reactive (Nonreactive) 12/13/23 Rubella IgG Antibody 122.6 IU/mL (0.0-10.0) H 12/13/23 RPR Nonreactive (Nonreactive) 12/13/23 HIV 1&2 Ab & HIV 1 Ag Non-reactive (Non-Reactiv) 12/13/23 TSH 1.52 uIU/mL (0.27-4.20) 12/13/23 Free T4 1.08 ng/dL (0.82-1.77) 12/13/23 C.trachomatis RNA (TMA) Not detected (NOT DETECTED) 12/13/23 N.gonorrhoeae RNA (TMA) Not detected (NOT DETECTED) 12/13/23 T. vaginalis Amp RNA Not detected (NOT DETECTED) 12/13/23 Chlamydia/GC Comment See note 12/13/23 Cystic Fibrosis Screen See comments 12/13/23 Ser , Semi-Qnt 98246.00 mIU/mL 11/22/23 HCG, Qual Positive (Negative) H 11/30/23 Urine Opiates Screen Negative ng/mL (Negative) 12/13/23 Ur Barbiturates Screen Negative ng/mL (Negative) 12/13/23 Ur Phencyclidine Scrn Negative ng/mL (Negative) 12/13/23 Ur Amphetamines Screen Negative ng/mL (Negative) 12/13/23 U Benzodiazepines Scrn Negative ng/mL (Negative) 12/13/23 Urine Cocaine Screen Negative ng/mL (Negative) 12/13/23 U Marijuana (THC) Screen Negative ng/mL (Negative) 12/13/23 Micro Urine Specimen 12/13/23 Pap Smear Interpret See note 11/18/22 Discharge Plan Discharge Patient Disposition: Home Condition: Stable Prescriptions: Continued Gummies 400 mcg-35 mg- 25 mg-5 mg tablet,chewable 1 tab PO DAILY Discharge Orders: Discharge Order (Routine); Ordered 03/08/24 Ordered By: Memo Del Cid Referrals: Memo Del Cid MD [Physician] - (CALL TOMORROW AND MAKE FOLLOW UP APPOINTMENT WITH DR. DEL CID FOR 1 WEEK.) Discharge Diet: Usual diet Discharge Activity: Increase activity as tolerated Patient Instructions: Perineal Care (DC), Perineal Care (GEN), Stillbirth (GEN), Bleeding (DC), Preeclampsia and Eclampsia After Delivery (GEN), OB Discharge Report, OB Care at Home, Opioid Safety, Abnormal Bleeding Activity Restrictions/Additional Instructions: *Keep all follow up appointments Discharge Attestations LUGGAGE MAKER Time Spent in Discharge Care*: less than 30 min Coding Level of Care Code Acute Code for Chg Fwd Diagnoses Vaginal delivery O80 Time Spent (min) 20
[2024-03-08] MEDS: ibuprofen 800 mg tablet PO (19:52)
[2024-03-08 20:35] LABS: Hematocrit 39.3 % (36-47); Mean Corpuscular HGB Conc 33.8 g/dL (30-55); Mean Corpuscular Volume 94.5 fl (85-98); Mean Platelet Volume 10.9 fL (7.4-10.4); Platelet Count 203 10^3/cmm (157-399); Red Blood Count 4.16 10^6/uL (3.85-5.65); Red Cell Distribution Width 12.2 % (12.1-15.1); White Blood Count 11.79 10^3/uL (3.29-11.43)
== END 2024-03-08 20:41 | disposition home or self-care (01) | DRG 807 ==
LOC: OBGYN 16:44
PROVIDERS: Admitting Provider Obstetrics & Gynecology; PCP Family Medicine; Visit Provider Obstetrics & Gynecology
DX: O36.4XX0 Maternal care for intrauterine death, not applicable or unspecified (principal); Z37.1 Single stillbirth; Z3A.22 22 weeks gestation of pregnancy; O36.22X0 Maternal care for hydrops fetalis, second trimester, not applicable or unspecified
CPT/HCPCS: 36415; 59025; 59409; 85025; 85027; 86850; 86900; 96372; 96374; 96376; 99211; J2405; J3010

== ENCOUNTER 2025-04-17 09:23 | Outpatient (CLI) | payer BC, MEDICAID, SELFPAY ==
--- NOTE | 2025-04-17 09:27 | MR_ITS ---
WS: [id number] MRI BRAIN WITHOUT AND WITH CONTRAST, ATTENTION DIRECTED TO THE PITUITARY GLAND HISTORY: HYPOPROLACTINEMIA COMPARISON: None available. TECHNIQUE: Diffusion-weighted imaging, axial T2 sequence, and postcontrast images in 3 planes are performed. High-resolution coronal and sagittal imaging performed through the pituitary region with and without intravenous gadolinium. Normal diffusion imaging. No hemorrhage, acute or remote infarct. No volume loss or atrophy. Normal hippocampal formations. Ventricles are normal size. Normal posterior fossa. Normal height of the pituitary gland and 5.2 mm. Normal position of the infundibulum and optic chiasm. Normal enhancement within the pituitary gland. There is no focus within the pituitary gland. No asymmetry or encasement of the carotid arteries. Postcontrast imaging is negative. No enhancing masses or vascular malformations. Negative appearance of the orbits and globes. Paranasal sinuses and mastoid air cells are clear. Calvarium is intact. MR/MR pituitary wo/w con* [id number] IMPRESSION: 1. Normal MRI brain with contrast. 2. Normal pituitary gland.
[2025-04-17] MEDS: gadobenate dimeglumine 20 mL vial 13 ML IV (10:36)
== END 2025-04-17 09:24 | disposition home or self-care (01) ==
LOC: RAD 09:24
PROVIDERS: PCP Family Medicine; Visit Provider Family Medicine
DX: E23.6 Other disorders of pituitary gland (principal); E22.1 Hyperprolactinemia
CPT/HCPCS: 70553